=== PATIENT | male | born 1960 | race Caucasian/White ===

== ENCOUNTER 2020-08-18 07:04 | Outpatient (CLI) | payer BC ==
[2020-08-18 14:58] LABS: Bilirubin Neg (Negative); Blood, Urine Negative (Negative); Clarity Clear (Clear); Glucose, Urine (Dipstick) Normal (Negative); Ketone, Urine Negative (Negative); Leukocyte Negative (Negative); Nitrite Negative (Negative); Protein, Urine (Dipstick) Negative (Neg-Trace); Urobilinogen Normal mg/dL (Less than 2)
[2020-08-18 15:09] LABS: #Eosinphils 0.2 10x3/uL (0.0-0.5); #Monocytes 0.7 10x3/uL (0.0-1.1); #Neutrophils 3.9 10x3/uL (1.5-8.4); %Basophils 0.4 % (0.0-2.0); %Eosinophils 2.9 % (0.0-6.0); %Lymphocytes 33.3 % (18.0-47.0); %Monocytes 9.4 % (0.0-10.0); %Neutrophils 53.6 % (40.0-75.0); Hemoglobin 14.3 g/dL (14.0-18.0); Mean Corpuscular HGB CONC 34.2 G/DL (32.0-36.0); Mean Corpuscular Hemoglobin 34.4 PG (27.0-33.0); Mean Corpuscular Volume 100.5 fl (80.0-100.0); Mean Platelet Volume 9.3 fl (7.4-10.4); Platelet Count 289 10x3/uL (130-400); RBC Distribution Width 11.8 % (11.5-14.5); Red Blood Cell (RBC) Count 4.16 10x6/uL (4.40-5.80); White Blood Cell (WBC) Count 7.2 10x3/uL (4.5-11.0)
[2020-08-18 15:28] LABS: Anion Gap 12 mmol/L (10-20); BUN (Urea Nitrogen) 14 mg/dL (8.4-25.7); Calc. Creatinine Clearance 0 mL/min (70-130); Calcium 9.2 mg/dL (7.8-10.44); Carbon Dioxide 25 mmol/L (22-29); Chloride 107 mmol/L (98-107); Estimated GFR-MDRD Greater than 90; Glucose 102 mg/dL (70-105); Potassium 4.1 mmol/L (3.5-5.1); Sodium 140 mmol/L (136-145)
[2020-08-18 15:37] LABS: RBC/HPF 0-3 HPF (0-3); Squamous Epithelial 0-3 HPF (0-3); WBC/HPF 0-3 HPF (0-3)
[2020-08-18 15:38] LABS: Bacteria/HPF Rare-Few HPF (None Seen)
[2020-08-18 15:41] LABS: Prothrombin Time 10.2 sec (9.5-12.1)
[2020-08-19 14:36] LABS: SARS-CoV-2 MS2 Positive; SARS-CoV-2 N Gene Negative; SARS-CoV-2 S Gene Negative; SARS-CoV-2 by NAA Not Detected (NotDetected); SARS-CoV-2 orf1ab Negative
--- NOTE | 2020-08-23 06:55 | EKG ---
Test Reason : PREOP Blood Pressure : / mmHG Vent. Rate : 098 BPM Atrial Rate : 098 BPM P-R Int : 170 ms QRS Dur : 096 ms QT Int : 338 ms P-R-T Axes : 069 080 074 degrees QTc Int : 431 ms Normal sinus rhythm Incomplete right bundle branch block Borderline ECG No previous ECGs available Confirmed by DEVON PERALTA MD ([id number]) on 08/23/2020 6:54:54 AM Referred By: Vladimir HURST Confirmed By:DEVON PERALTA MD
== END 2020-08-18 07:05 | disposition home or self-care (01) ==
LOC: EDBD → LABBT 07:04
PROVIDERS: ATTEND Orthopaedic Surgery
DX: Z01.818 Encounter for other preprocedural examination (principal); Z01.812 Encounter for preprocedural laboratory examination; M16.11 Unilateral primary osteoarthritis, right hip; Z20.828 Contact with and (suspected) exposure to other viral communicable diseases
CPT/HCPCS: 80048; 81001; 85025; 85610; 87081; 87635; 93005; 93010; U0003

== ENCOUNTER 2020-08-18 14:15 | Inpatient (IN) | payer BC ==
[2020-08-22 09:50] VITALS: BMI 26.6
[2020-08-23] MEDS ORDERED: Tranexamic Acid 1,000 MG/10 ML VIAL ONE (09:54)
[2020-08-23] MEDS ORDERED: Vancomycin 1.5 GRAM/300 ML BAG ONE (09:55)
[2020-08-23] MEDS ORDERED: Sodium Chloride 0.9% 100 ML ONE (09:55)
[2020-08-23] MEDS ORDERED: Midazolam HCl 2 mg/2 ml Vial ONE ×2 (10:31→13:03)
[2020-08-23] MEDS ORDERED: Fentanyl 100 MCG/2 ML VIAL ONE ×5 (10:31→17:57)
[2020-08-23] MEDS ORDERED: Rocuronium Bromide 10 MG/ML (10ML VIAL) ONE (10:38)
[2020-08-23] MEDS ORDERED: Ondansetron PF 4 MG/2 ML Vial ONE (10:38)
[2020-08-23] MEDS ORDERED: Dexamethasone 20 MG/5 ML VIAL ONE (10:38)
[2020-08-23] MEDS ORDERED: PROPOFOL 200 MG/20 ML VIAL ONE (10:38)
[2020-08-23] MEDS ORDERED: Esmolol 100 MG/10 ML VIAL ONE (10:38)
[2020-08-23] MEDS ORDERED: Lidocaine 1% PF 5 ML VIAL ONE ×2 (10:38→13:54)
[2020-08-23] MEDS ORDERED: PHENYLEPHRINE-NS 100 MCG/ML 10 ML SYRINGE ONE (10:38)
[2020-08-23] MEDS ORDERED: Glycopyrrolate 0.2 MG/ML 5 ML SYRINGE ONE (10:38)
[2020-08-23] MEDS ORDERED: Lidocaine 1.5% w/Epi 1:200K 30 ML VIAL (Epid Use) ONE (10:38)
[2020-08-23] MEDS ORDERED: diphenhydrAMINE 50 MG/ML VIAL IM PRN (11:15)
[2020-08-23] MEDS ORDERED: Promethazine HCl 25 MG SUPP PR PRN (11:15)
[2020-08-23] MEDS ORDERED: Ondansetron PF 4 MG/2 ML Vial IVP PRN ×2 (11:15→12:31)
[2020-08-23] MEDS ORDERED: Hydrocerin (Eucerin) Cream 120 gm Jar TOP PRN (11:15)
[2020-08-23] MEDS ORDERED: Naloxone HCl 0.4 mg/ml Vial IVP PRN (11:15)
[2020-08-23] MEDS ORDERED: Bupivacaine 0.25% 10 ML VIAL EPIDURAL PRN (11:15)
[2020-08-23] MEDS ORDERED: diphenhydrAMINE 25 MG CAP PO PRN ×2 (11:15→12:31)
[2020-08-23] MEDS ORDERED: diphenhydrAMINE 50 MG/ML VIAL IVP PRN (11:15)
[2020-08-23] MEDS ORDERED: Promethazine HCl 25 MG/ML VIAL IM PRN ×2 (11:15→12:31)
[2020-08-23] MEDS ORDERED: Naloxone HCl 0.4 mg/ml Vial IV PRN (11:15)
[2020-08-23] MEDS ORDERED: traMADol HCl 50 MG TAB PO PRN ×2 (11:15)
[2020-08-23] MEDS ORDERED: HYDROcodone/Acetaminophen 5/325 mg Tablet PO PRN ×2 (11:15)
[2020-08-23] MEDS ORDERED: Zolpidem Tartrate 5 MG TAB PO PRN ×2 (11:15→12:31)
[2020-08-23] MEDS ORDERED: Acetaminophen 325 MG TAB PO PRN (12:31)
[2020-08-23] MEDS ORDERED: HYDROcodone/Acetaminophen 10/325 mg Tablet PO PRN ×2 (12:31)
[2020-08-23] MEDS ORDERED: Cyclobenzaprine 10 MG TAB PO PRN (12:32)
--- NOTE | 2020-08-23 14:52 | OP ---
DATE OF PROCEDURE: 08/23/2020 TITLE OF PROCEDURE: Right total hip arthroplasty. [employer]: Olman Branch PA-C BLOOD LOSS: Less than 200. SPECIMEN: None. DRAINS: None. COMPLICATIONS: None. IMPLANTS USED: [place] Accolade II size 5 stem with a standard ceramic head, 36-mm; Trident II cup 54 mm with a 36-mm X3 liner, 10 degree offset. PROCEDURE IN DETAIL: After informed consent was obtained in the preoperative holding area, the patient was taken to the operative suite where general anesthesia was induced. The patient was then positioned in the lateral decubitus position. The hip was then prepped and draped in usual sterile fashion. The patient received preoperative antibiotics. Prior to incision, time-out was called and all members of the surgical team agreed upon site, surgeon, and patient. After this, a longitudinal incision was made directly over the trochanter, noted by palpation extending 2 fingerbreadths above and below the trochanter. The deeper subcutaneous layer was undermined with Bovie electrocautery. The iliotibial band was encountered and incised sharply and the plane below this was developed bluntly. A Charnley retractor was placed to hold this opened. The lateral aspect of the trochanter and the abductor muscles were encountered and then reflected anteriorly off the trochanter using Bovie electrocautery. Once this was completed, the anterior capsule was then encountered and identified and copious capsulotomy was carried out, exposing the femoral neck and head. Dislocation maneuver was then performed and an in situ provisional neck cut was then made using the oscillating saw. Attention was then turned to acetabular preparation and sequential reaming was carried out up to the appropriate diameter. A trial was then malleted into place with good firm resistance and no pullout. The permanent acetabular shell was then malleted squarely into place, as was the appropriate liner. Once completed, the wound was copiously irrigated and attention was then turned to femoral preparation. Flexion and external rotation were performed of the exposed thigh and femoral elevators were then placed at the proximal aspect of the wound. Canal finder was used to establish the length of the canal and sequential reaming was carried out, followed by broaching. Once the appropriate stability was established with the trial broaches with flexion, extension and rotational stability, we did trial with neutral and 2 mm offset incremental necks. Once the appropriate size was decided upon, with good stability noted with flexion, extension, internal and external rotation and shuck being negative, we removed the femoral trial broach and malletted into place the permanent prosthesis with good firm fit, which was also stable to rotation. Again, the hip felt very stable to flexion, extension, internal and external rotation. Leg lengths appeared near anatomic clinically and we were quite happy with prosthesis placement. Copious irrigation was then carried out through the entirety of the wound. Primary closure of the abductors was accomplished with interrupted #2 Vicryl [id number] stitches and the IT band was then closed with interrupted #2 Vicryl, oversewn with a #2 running barbed Quill stitch. Subcutaneous fascia was closed with running barbed Quill stitch and a subcuticular Monocryl barbed Quill stitch was used for skin closure and augmented with skin cement. A sterile dressing was applied. The procedure was terminated without any complication. All counts were correct. The patient was awakened in the operative suite and taken to the recovery room in stable condition. The catering assistant/co-surgeon was present through the entire procedure and was responsible for providing exposure, tissue retraction and any necessary limb or tissue manipulation required to obtain necessary reduction or hardware placement. The catering assistant/co-surgeon also provided bleeding control, tissue closure, and suturing in conjunction with the primary surgeon. Job ID: [id number]
[2020-08-23] MEDS ORDERED: Lidocaine 2% 10 ML INJ ONE (14:57)
[2020-08-23] MEDS ORDERED: Bupivacaine 0.25% HCL 30 ML VIAL ONE (15:47)
--- NOTE | 2020-08-23 17:37 | RAD ---
Radiograph right hip 2 views: 08/23/2020 HISTORY: 60-year-old male with chronic right hip pain due to osteoarthritis. Status post surgery. COMPARISON: 06/29/2020 FINDINGS: Femoral head and neck have been resected, and replaced with metallic prosthesis with stem. This artic ulates with metallic acetabular cup. Subcutaneous emphysema. IMPRESSION: Very recently status post total right hip replacement arthroplasty.
[2020-08-23] MEDS: Sodium Chloride 0.9% 1,000 ML IV SCH ×2 (18:58→19:01)
[2020-08-23] MEDS: Ketorolac Tromethamine 30 MG/ML VIAL IVP SCH ×2 (19:00)
[2020-08-23] MEDS: CEFAZOLIN 2 GM in Premix Bag 1 BAG IVPB SCH (19:03)
[2020-08-23] MEDS: Senokot S 8.6-50 MG TAB PO SCH (20:32)
[2020-08-23] MEDS: Aspirin 81 mg Enteric Coated Tablet PO SCH (20:33)
[2020-08-23] MEDS: Ferrous Gluconate 324 MG TAB PO SCH (20:33)
[2020-08-24] MEDS: Ketorolac Tromethamine 30 MG/ML VIAL IVP SCH ×5 (00:36→23:55)
[2020-08-24] MEDS: CEFAZOLIN 2 GM in Premix Bag 1 BAG IVPB SCH (01:45)
[2020-08-24 06:03] LABS: Hemoglobin 12.6 g/dL (14.0-18.0); Mean Corpuscular HGB CONC 33.7 g/dL (32.0-36.0); Mean Corpuscular Hemoglobin 35.4 pg (27.0-31.0); Platelet Count 231 thou/uL (130-400); RBC Distribution Width 10.9 % (11.5-14.5); Red Blood Cell (RBC) Count 3.55 mill/uL (4.70-6.10); White Blood Cell (WBC) Count 10.4 thou/uL (4.8-10.8)
[2020-08-24] MEDS: Sodium Chloride 0.9% 1,000 ML IV SCH ×2 (08:45→17:45)
[2020-08-24] MEDS: fentaNYL Citrate/PF 500 MCG, Bupivacaine 10 ML in Sodium Chloride 0.9% 80 ML EPIDURAL SCH ×2 (08:47→23:55)
[2020-08-24] MEDS: Lisinopril/Hydrochlorothiazide 20 mg/12.5 mg Tablet PO SCH (08:52)
[2020-08-24] MEDS: Ferrous Gluconate 324 MG TAB PO SCH ×2 (08:52→20:12)
[2020-08-24] MEDS: Multivitamin W/ Minerals 1 TAB PO SCH (08:52)
[2020-08-24] MEDS: Amlodipine 5 MG TAB PO SCH (08:52)
[2020-08-24] MEDS: Aspirin 81 mg Enteric Coated Tablet PO SCH ×2 (08:52→20:12)
[2020-08-24] MEDS: Senokot S 8.6-50 MG TAB PO SCH ×2 (08:52→20:12)
[2020-08-24] MEDS ORDERED: FLU VACC QS2020-21(6MOS UP)/PF 60 MCG/0.5 ML SYRINGE IM ONE (21:00)
[2020-08-25] MEDS: Sodium Chloride 0.9% 1,000 ML IV SCH ×2 (04:05→12:50)
[2020-08-25 05:22] LABS: Hemoglobin 11.1 g/dL (14.0-18.0); Mean Corpuscular Hemoglobin 33.8 pg (27.0-31.0); Platelet Count 202 thou/uL (130-400); RBC Distribution Width 11.1 % (11.5-14.5); Red Blood Cell (RBC) Count 3.27 mill/uL (4.70-6.10); White Blood Cell (WBC) Count 8.7 thou/uL (4.8-10.8)
[2020-08-25] MEDS: Ketorolac Tromethamine 30 MG/ML VIAL IVP SCH (06:24)
[2020-08-25] MEDS: Senokot S 8.6-50 MG TAB PO SCH (08:49)
[2020-08-25] MEDS: Amlodipine 5 MG TAB PO SCH (08:49)
[2020-08-25] MEDS: Lisinopril/Hydrochlorothiazide 20 mg/12.5 mg Tablet PO SCH (08:50)
[2020-08-25] MEDS: Multivitamin W/ Minerals 1 TAB PO SCH (08:50)
[2020-08-25] MEDS: Aspirin 81 mg Enteric Coated Tablet PO SCH (08:50)
[2020-08-25] MEDS: Ferrous Gluconate 324 MG TAB PO SCH (08:50)
[2020-08-25] MEDS ORDERED: FLU VACC QS2020-21(6MOS UP)/PF 60 MCG/0.5 ML SYRINGE IM ONE (09:00)
[2020-08-25 11:42] VITALS: BP 105/66; TEMP 98.5
== END 2020-08-25 14:30 | disposition home or self-care (01) | DRG 470 ==
LOC: SURG A 08-23 09:36 → EDBD 08-23 14:15 → SURG A 08-23 18:51
PROVIDERS: ADMIT Orthopaedic Surgery; ATTEND Orthopaedic Surgery
PROC: 0SR9039 Replacement of Right Hip Joint with Ceramic Synthetic Substitute, Cemented, Open Approach (ICD-10-PCS; principal; 2020-08-23)
DX: M16.11 Unilateral primary osteoarthritis, right hip (principal); Z20.828 Contact with and (suspected) exposure to other viral communicable diseases; I10 Essential (primary) hypertension; J30.9 Allergic rhinitis, unspecified; F17.210 Nicotine dependence, cigarettes, uncomplicated; Z79.899 Other long term (current) drug therapy
CPT/HCPCS: 36415; 85027; J0690; J1100; J1885; J2001; J2250; J2405; J2704; J3010; J3370; J3490; S0020

== ENCOUNTER 2022-08-16 11:35 | Outpatient (CLI) | payer BC | END 2022-08-16 11:36 | disposition home or self-care (01) | LOC: BICRAD 11:35 | PROVIDERS: ATTEND Internal Medicine Rheumatology | DX: M25.541 Pain in joints of right hand (principal); M25.542 Pain in joints of left hand; M11.242 Other chondrocalcinosis, left hand; M11.241 Other chondrocalcinosis, right hand; M25.841 Other specified joint disorders, right hand; M25.741 Osteophyte, right hand; M85.842 Other specified disorders of bone density and structure, left hand ==

== ENCOUNTER 2025-07-06 07:36 | Outpatient (CLI) | payer OTHER | END 2025-07-06 07:37 | disposition home or self-care (01) | LOC: BICCT 07:36 | PROVIDERS: ATTEND Internal Medicine Cardiovascular Disease | DX: Z13.6 Encounter for screening for cardiovascular disorders (principal); I10 Essential (primary) hypertension; I70.90 Unspecified atherosclerosis | CPT/HCPCS: 75571 ==

== ENCOUNTER 2025-08-18 13:51 | Outpatient (CLI) | payer MEDICARE ==
[~2025-08-18 13:51] MED LIST: Iopamidol 370 76% 100 ML VIAL ONE
[2025-08-18 14:23] LABS: Estimated GFR - POC 95.0
== END 2025-08-18 13:52 | disposition home or self-care (01) ==
LOC: CT 13:51
PROVIDERS: ATTEND Physician Assistant
DX: I77.819 Aortic ectasia, unspecified site (principal)
CPT/HCPCS: 36415; 71275; 82565; Q9967